=== PATIENT | female | born 1945 | race Hispanic/Latino ===

== ENCOUNTER 2018-12-28 08:44 | Day surgery (SDC) | payer OTHER ==
[~2018-12-28] VITALS: Ht 149.9 cm; Wt 56.7 kg
[~2018-12-28 08:44] MED LIST: AMLO10TA7 PO; APIX5TAB PO; CARV6.25 PO; DONE5TAB33 PO; HYDR12.54 PO; LOSA100T58 PO; PANT40TA PO; PRED10TA3 PO; SIMV20TA6 PO; SODIUM CHLORIDE 0.9% 1000ML 1,000 ML IV ONE; VITAMIN D PO
[2018-12-28 09:34] VITALS: BP 138/86
[2018-12-28] MEDS ORDERED: TIMO5DRO43 OP (10:22)
[2018-12-28 10:55] LABS: INR 1.02 (0.85-1.15); PARTIAL THROMBOPLASTIN TIME 24.1 SEC (26.3-35.5); PROTHROMBIN TIME 10.7 SEC (9.6-11.6)
[2018-12-28 11:35] VITALS: BP 101/54
[2018-12-28 11:40] VITALS: BP 94/58
[2018-12-28 11:45] VITALS: BP 107/68
[2018-12-28 11:50] VITALS: BP 114/67
[2018-12-28 11:55] VITALS: BP 112/80
== END 2018-12-28 12:20 | disposition home or self-care (01) ==
LOC: ENDO 08:44
PROVIDERS: ATTEND Internal Medicine
DX: K31.7 Polyp of stomach and duodenum (principal); K31.89 Other diseases of stomach and duodenum; I10 Essential (primary) hypertension; K21.9 Gastro-esophageal reflux disease without esophagitis; E78.5 Hyperlipidemia, unspecified; M06.9 Rheumatoid arthritis, unspecified; I48.91 Unspecified atrial fibrillation; Z79.01 Long term (current) use of anticoagulants; Z79.899 Other long term (current) drug therapy; Z98.890 Other specified postprocedural states; Z82.49 Family history of ischemic heart disease and other diseases of the circulatory system; Z83.3 Family history of diabetes mellitus
CPT/HCPCS: 36415; 43237; 43239; 85610; 85730; 88305; A4606; J7030